=== PATIENT | female | born 1995 | race Caucasian/White ===

== ENCOUNTER 2019-06-19 08:54 | Emergency (ER) | payer OTHER, SELFPAY ==
--- NOTE | 2019-06-19 09:30 | ER ---
Nurse's Notes [facility] Name: Vega Casillas Age: 23 yrs Sex: Female : 1995 Arrival Date: 06/19/2019 Time: 08:58 Bed 15 Private MD: Diagnosis: Essential (primary) hypertension Presentation: 06/18 09:10 Chief complaint: Went to outpatient clinic for pre employment physical, sent for BP hb 159/98. Coronavirus screen: Proceed with normal triage. Ebola Screen: No symptoms or risks identified at this time. Initial Sepsis Screen: Does the patient meet any 2 criteria? No. Patient's initial sepsis screen is negative. Does the patient have a suspected source of infection? No. Patient's initial sepsis screen is negative. Risk Assessment: Do you want to hurt yourself or someone else? Patient reports no desire to harm self or others. Onset of symptoms was June 19, 2019. 09:10 Method Of Arrival: Ambulatory hb 09:10 Acuity: LEATHA 3 hb Historical: - Allergies: 09:13 No Known Allergies; hb - Home Meds: 09:13 None [Active]; hb - PMHx: 09:13 None; hb - PSHx: 09:13 None; hb - Immunization history:: Adult Immunizations up to date. - Social history:: Smoking status: Patient denies any tobacco usage or history of. Screenin:00 Abuse screen: Denies threats or abuse. Denies injuries from another. Nutritional ph screening: No deficits noted. Tuberculosis screening: No symptoms or risk factors identified. Fall Risk None identified. Assessment: 09:35 General: Appears in no apparent distress. comfortable, well groomed, Behavior is calm, ph cooperative, appropriate for age. Pain: Denies pain. Neuro: Level of Consciousness is awake, alert, obeys commands, Oriented to person, place, time, situation, Denies weakness blurred vision dizziness, headache. Cardiovascular: Denies chest pain, lightheadedness, shortness of breath. Respiratory: No deficits noted. Derm: Skin is intact, is healthy with good turgor, Skin is pink, warm \T\ dry. Musculoskeletal: Circulation, motion, and sensation intact. Range of motion:. Vital Signs: 09:10 BP 144 / 102; Pulse 79; Resp 16; Temp 97.9; Pulse Ox 100% ; Weight 68.95 kg; Height 5 hb ft. 5 in. (165.10 cm); Pain 0/10; 09:50 BP 136 / 79; Pulse 76; Resp 18; Temp 97.9; Pulse Ox 99% on R/A; ph 09:10 Body Mass Index 25.29 (68.95 kg, 165.10 cm) hb ED Course: 08:58 Patient arrived in ED. mr 08:59 Elham Novoa F[facility]-C is [facility]. kb 08:59 Suresh Gonzalez MD is Attending Physician. kb 09:12 Triage completed. hb 09:13 Arm band placed on. hb 09:24 Smitha Gotti, RN is Primary Nurse. ph 09:25 No provider procedures requiring assistance completed. Patient did not have IV access ph during this emergency room visit. 09:30 Patient has correct armband on for positive identification. Bed in low position. ph Administered Medications: No medications were administered Outcome: 09:29 Discharge ordered by . kb 09:57 Patient left the ED. ph 09:57 Discharged to home ambulatory. ph 09:57 Condition: good 09:57 Discharge instructions given to patient, Instructed on discharge instructions, follow up and referral plans. Demonstrated understanding of instructions, follow-up care. Signatures: Elham Novoa FNP-C FNP-Yosvany SuarezaMariana mr Smitha Gotti, RN RN ph Tamiko Conklin RN RN
--- NOTE | 2019-06-19 09:31 | EDPHYS ---
Physician Documentation [facility] Name: Vega Casillas Age: 23 yrs Sex: Female : 1995 Arrival Date: 06/19/2019 Time: 08:58 Bed 15 Private MD: ED Physician Suresh Gonzalez HPI: 06/18 09:27 This 23 yrs old Female presents to ER via Ambulatory with complaints of High kb Blood Pressure. 09:27 The patient has elevated blood pressure and discovered this during work physical. kb Onset: The symptoms/episode began/occurred today. Associated signs and symptoms: The patient has no apparent associated signs or symptoms, Pertinent negatives: chest pain, dizziness, dyspnea, headache, lightheadedness, nausea, visual changes, vomiting, weakness. Severity of symptoms: At its worst the blood pressure was moderate, in the emergency department the blood pressure is improved. The patient has experienced similar episodes in the past, a few times. The patient has not recently seen a physician. Pt reports she went to a physical for work and was told her BP was high and she needed to come get some medication to lower it so she could start the job on July 15. Pt denies any symptoms. Reports her BP has been elevated in the past at dr's appts but she never needed medication. Reports she is under a lot of stress right now because she just graduated, moved back and is going to start a new job. . Historical: - Allergies: 09:13 No Known Allergies; hb - Home Meds: 09:13 None [Active]; hb - PMHx: 09:13 None; hb - PSHx: 09:13 None; hb - Immunization history:: Adult Immunizations up to date. - Social history:: Smoking status: Patient denies any tobacco usage or history of. ROS: 09:26 Constitutional: Negative for fever, chills, and weight loss, Eyes: Negative for injury, kb pain, redness, and discharge, ENT: Negative for injury, pain, and discharge, Neck: Negative for injury, pain, and swelling, Cardiovascular: Negative for chest pain, palpitations, and edema, Respiratory: Negative for shortness of breath, cough, wheezing, and pleuritic chest pain, Abdomen/GI: Negative for abdominal pain, nausea, vomiting, diarrhea, and constipation, Back: Negative for injury and pain, MS/Extremity: Negative for injury and deformity, Skin: Negative for injury, rash, and discoloration, Neuro: Negative for headache, weakness, numbness, tingling, and seizure. Exam: 09:26 Constitutional: This is a well developed, well nourished patient who is awake, alert, kb and in no acute distress. Head/Face: Normocephalic, atraumatic. Eyes: Pupils equal round and reactive to light, extra-ocular motions intact. Lids and lashes normal. Conjunctiva and sclera are non-icteric and not injected. Cornea within normal limits. Periorbital areas with no swelling, redness, or edema. Neck: Trachea midline, no thyromegaly or masses palpated, and no cervical lymphadenopathy. Supple, full range of motion without nuchal rigidity, or vertebral point tenderness. No Meningismus. Chest/axilla: Normal chest wall appearance and motion. Nontender with no deformity. No lesions are appreciated. Cardiovascular: Regular rate and rhythm with a normal S1 and S2. No gallops, murmurs, or rubs. Normal PMI, no JVD. No pulse deficits. Respiratory: Lungs have equal breath sounds bilaterally, clear to auscultation and percussion. No rales, rhonchi or wheezes noted. No increased work of breathing, no retractions or nasal flaring. Abdomen/GI: Soft, non-tender, with normal bowel sounds. No distension or tympany. No guarding or rebound. No evidence of tenderness throughout. Skin: Warm, dry with normal turgor. Normal color with no rashes, no lesions, and no evidence of cellulitis. MS/ Extremity: Pulses equal, no cyanosis. Neurovascular intact. Full, normal range of motion. Neuro: Awake and alert, GCS 15, oriented to person, place, time, and situation. Cranial nerves II-XII grossly intact. Motor strength 5/5 in all extremities. Sensory grossly intact. Cerebellar exam normal. Normal gait. Vital Signs: 09:10 BP 144 / 102; Pulse 79; Resp 16; Temp 97.9; Pulse Ox 100% ; Weight 68.95 kg; Height 5 hb ft. 5 in. (165.10 cm); Pain 0/10; 09:50 BP 136 / 79; Pulse 76; Resp 18; Temp 97.9; Pulse Ox 99% on R/A; ph 09:10 Body Mass Index 25.29 (68.95 kg, 165.10 cm) MDM: 09:01 Patient medically screened. kb 09:25 Data reviewed: vital signs, nurses notes. Data interpreted: Pulse oximetry: on room air kb is 100 %. Interpretation: normal. Counseling: I had a detailed discussion with the patient and/or guardian regarding: the historical points, exam findings, and any diagnostic results supporting the discharge/admit diagnosis, the need for outpatient follow up, a family practitioner, to return to the emergency department if symptoms worsen or persist or if there are any questions or concerns that arise at home. ED course: Pt educated to keep bp log and follow up with PCP to determine need for medications. Verbal understanding received. . Administered Medications: No medications were administered Disposition: 19:06 Co-signature as Attending Physician, Suresh Gonzalez MD. ps1 Disposition: 06/19/19 09:29 Discharged to Home. Impression: Essential (primary) hypertension. - Condition is Stable. - Discharge Instructions: Hypertension, [id number]. - Medication Reconciliation Form, Thank You Letter, Antibiotic Education, Prescription Opioid Use form. - Follow up: Emergency Department; When: As needed; Reason: Worsening of condition. Follow up: Private Physician; When: 2 - 3 days; Reason: Recheck today's complaints, Continuance of care, Re-evaluation by your physician. Signatures: Elham Novoa, CHEESE COOK-C CHEESE COOK-Smitha Rubio RN RN ph Baxter, Heather, RN RN hb Singer, Phillip, MD MD ps1 Corrections: (The following items were deleted from the chart) 09:57 09:29 06/19/2019 09:29 Discharged to Home. Impression: Essential (primary) ph hypertension. Condition is Stable. Forms are Medication Reconciliation Form, Thank You Letter, Antibiotic Education, Prescription Opioid Use. Follow up: Emergency Department; When: As needed; Reason: Worsening of condition. Follow up: Private Physician; When: 2 - 3 days; Reason: Recheck today's complaints, Continuance of care, Re-evaluation by your physician. kb
[2019-06-19 10:23] VITALS: BP 144/102; TEMP 97.9; O2SAT 100
== END 2019-06-19 09:57 | disposition home or self-care (01) ==
LOC: ER 08:54
DX: I10 Essential (primary) hypertension (principal)
CPT/HCPCS: 99281